=== PATIENT | female | born 1960 | race Caucasian/White ===

== ENCOUNTER → 2017-09-04 | Outpatient (CLI) | payer OTHER ==
--- NOTE | 2017-09-04 10:34 | DIAGNOSTIC IMAGING REPORT ---
L FOREARM 2 VIEWS ROUTINE CLINICAL HISTORY: 57 years-old Female presenting with M79.639, injury while tubing, left forearm pain for 2 weeks. TECHNIQUE: Frontal and lateral views of the left forearm are obtained. COMPARISON: None. FINDINGS: Proximal and distal radial ulnar articulations grossly congruent. No acute fracture or malalignment. No advanced degenerative change. No radiographic soft tissue abnormality. IMPRESSION: No acute osseous injury. Electronically signed by: Kar Jean M.D. 09/04/2017 10:33 AM Dictated Date/Time: 09/04/2017 10:32 AM
== END | disposition home or self-care (01) ==
LOC: C.RADPV 10:08
PROVIDERS: ATTEND Nurse Practitioner Family
DX: M79.632 Pain in left forearm (principal)